=== PATIENT | female | born 1990 | race Caucasian/White ===

== ENCOUNTER 2023-10-09 14:29 | Emergency (ER) | payer BC ==
[~2023-10-09] VITALS: Ht 152.4 cm; Wt 79.8 kg
[2023-10-09 15:00] VITALS: BP_SYST 130; PULSE 90; RESP 17; TEMP 97.4; O2SAT 99
[2023-10-09 15:20] LABS: BILIRUBIN,URINE 1+ (NEGATIVE); BLOOD, URINE NEGATIVE (NEGATIVE); CLARITY/URINE CLEAR (CLEAR); COLOR,URINE YELLOW (YELLOW); GLUCOSE,URINE NEGATIVE (NEGATIVE); KETONES,URINE 1+ (NEGATIVE); LEUKOCYTE ESTERASE ,URINE NEGATIVE (NEGATIVE); NITRITE, URINE NEGATIVE (NEGATIVE); PH,URINE 5.5 (5.0-8.0); PROTEIN URINE TRACE (NEGATIVE); UROBILINOGEN,URINE 0.2 (0.2-1.0)
[2023-10-09 15:31] LABS: BACTERIA,URINE FEW /HPF (None Seen); RBC,URINE NONE SEEN /HPF (0-3); WBC,URINE 0-3 /HPF (0-3)
[2023-10-09 15:32] LABS: MUCUS,URINE 1+ /LPF (None Seen)
[2023-10-09 15:38] LABS: BASOPHILS # (AUTO) 0.1 K/uL (0.0-0.2); BASOPHILS % (AUTO) 1.1 % (0.0-2.0); EOSINOPHILS % (AUTO) 0.1 % (0.0-4.0); HEMATOCRIT 36.6 % (36-48); LYMPHOCYTES # (AUTO) 2.4 K/uL (1.0-5.5); LYMPHOCYTES % (AUTO) 18.4 % (20.5-51.5); MEAN CORPUSCULAR HEMOGLOBIN 25 pg (27-31); MEAN CORPUSCULAR HGB CONC 33 % (32-36); MEAN CORPUSCULAR VOLUME 77 fL (79.0-98.0); MONOCYTES # (AUTO) 0.8 K/uL (0.0-1.0); MONOCYTES % (AUTO) 6.1 % (1.7-9.3); NEUTROPHILS # (AUTO) 9.5 K/uL (1.8-7.7); NEUTROPHILS % (AUTO) 74.3 % (40.0-70.0); PLATELET COUNT (AUTO) 445 K/uL (130-430); RED BLOOD CELL COUNT(AUTO) 4.79 MIL/uL (4.2-6.2); RED CELL DISTRIBUTION WIDTH 16.1 % (9.0-15.0); WHITE BLOOD COUNT (AUTO) 12.8 K/uL (4.8-10.8)
[2023-10-09] MEDS: METOCLOPRAMIDE HCL 10 MG/2 ML VIAL IVP ONE (15:38)
[2023-10-09] MEDS: NACL 0.9% 1,000 ML IV ONE (15:38)
[2023-10-09] MEDS: DIPHENHYDRAMINE INJ 50 MG/ML VIAL IVP ONE (15:38)
[2023-10-09] MEDS: ONDANSETRON HCL 4 MG/2 ML VIAL IVP ONE (15:39)
[2023-10-09 15:41] LABS: SERUM HCG (QUALITATIVE) POSITIVE (NEGATIVE)
[2023-10-09 15:47] LABS: CALCIUM 9.8 mg/dL (8.4-11.0); CREATININE 0.78 mg/dL (0.55-1.30); POTASSIUM 3.3 mmol/L (3.5-5.1)
[2023-10-09 16:12] LABS: ALBUMIN 4.2 g/dL (3.4-4.8); BILIRUBIN,DIRECT 0.1 mg/dL (0.0-0.3); TOTAL BILIRUBIN 0.5 mg/dL (0.0-1.0); TOTAL PROTEIN, SERUM 8.9 g/dL (6.4-8.3)
[2023-10-09] MEDS: KCL 40 mEq in D5W 1000 mL 1,000 ML IV ONE (16:30)
[2023-10-09] MEDS ORDERED: DOXY1TAB3 PO (19:01)
[2023-10-09 20:45] VITALS: BP_SYST 130; PULSE 90; RESP 17; TEMP 97.4; O2SAT 99
== END 2023-10-09 20:45 | disposition home or self-care (01) ==
LOC: SED 14:29
DX: O21.0 Mild hyperemesis gravidarum (principal); Z3A.01 Less than 8 weeks gestation of pregnancy; Z79.899 Other long term (current) drug therapy
CPT/HCPCS: 99285; 96365; 96366; 96375; 76805; 96361; 80076; 80048; 81001; 84703; 84702; 83690; 83735; 85025; 36415; 81025; 81000; 81015; J1200; J2765; J2405; J7030

== ENCOUNTER 2024-03-29 15:01 | Emergency (ER) | payer BC, MEDICAID ==
[~2024-03-29] VITALS: Ht 149.9 cm; Wt 75.7 kg
[~2024-03-29 15:01] MED LIST: DOXY1TAB3 PO
[2024-03-29 15:06] VITALS: BP_SYST 134; PULSE 90; RESP 18; TEMP 98.3; O2SAT 98
[2024-03-29] MEDS ORDERED: CEPH-548 PO (15:25)
[2024-03-29 15:40] VITALS: BP_SYST 134; PULSE 90; RESP 18; TEMP 98.3; O2SAT 98
== END 2024-03-29 15:41 | disposition home or self-care (01) ==
LOC: SED 15:01
DX: L03.011 Cellulitis of right finger (principal); Z98.890 Other specified postprocedural states; Z79.899 Other long term (current) drug therapy; Z79.2 Long term (current) use of antibiotics
CPT/HCPCS: 99283